=== PATIENT | female | born 1955 | race Caucasian/White ===

== ENCOUNTER 2023-08-09 13:58 | Emergency (ER) | payer OTHER ==
[~2023-08-09] VITALS: Ht 157.5 cm; Wt 83.9 kg
[~2023-08-09 13:58] MED LIST: PAXIL; THYROID
[2023-08-09 14:07] VITALS: BP_SYST 152; PULSE 88; RESP 18; TEMP 98.3; O2SAT 96
[2023-08-09] MEDS ORDERED: BACITRACIN ZINC 15 GM TOPICAL OINTMENT TP ONE (14:15)
[2023-08-09] MEDS: ACETAMINOPHEN 500 MG TABLET PO ONE (14:19)
[2023-08-09] MEDS: BACITRACIN 1 GM OINT TP ONE (14:59)
[2023-08-09] MEDS: IBUPROFEN 600 MG TABLET PO ONE (15:39)
[2023-08-09] MEDS ORDERED: DICL20GE TP (15:43)
[2023-08-09] MEDS ORDERED: IBUP-1969 PO (15:43)
[2023-08-09 17:25] VITALS: BP_SYST 152; PULSE 88; RESP 18; TEMP 98.3; O2SAT 96
== END 2023-08-09 16:04 ==
LOC: SED 13:58
DX: S80.01XA Contusion of right knee, initial encounter (principal); S00.01XA Abrasion of scalp, initial encounter; I10 Essential (primary) hypertension; Z88.0 Allergy status to penicillin; W22.8XXA Striking against or struck by other objects, initial encounter; Y93.89 Activity, other specified; Y92.89 Other specified places as the place of occurrence of the external cause; Y99.8 Other external cause status
CPT/HCPCS: 70450-TC; 73564; 82948; 99284